=== PATIENT | female | born 1995 | race African-American/Black ===

== ENCOUNTER 2023-11-20 00:39 | Emergency (ER) | payer OTHER ==
[2023-11-20 00:49] VITALS: BP 154/96; PULSE 80; RESP 16; TEMP 97.9; BMI 35.4
[2023-11-20 02:22] LABS: EPI CELLS >36 /uL (0-25.1); HYALINE CASTS 1 /uL (0-3.1); PH,URINE 5.5 (5.0-8.0); URINE APPEARANCE CLEAR; URINE BACTERIA 530 /uL (0-1359); URINE BILIRUBIN NEGATIVE (NEGATIVE); URINE COLOR YELLOW; URINE GLUCOSE (UA) NEGATIVE (NEGATIVE); URINE KETONE NEGATIVE (NEGATIVE); URINE LEUK ESTERASE NEGATIVE (NEGATIVE); URINE NITRITE NEGATIVE (NEGATIVE); URINE PROTEIN 2+ (NEGATIVE); URINE RBC 6 /uL (0-23.9); URINE WBC 12 /uL (0-25.8)
[2023-11-20] MEDS ORDERED: ACETAMINOPHEN 325 MG TABLET (FP) ONE (03:58)
== END 2023-11-20 04:05 | disposition home or self-care (01) ==
LOC: FER 00:39
DX: O26.891 Other specified pregnancy related conditions, first trimester (principal); R10.30 Lower abdominal pain, unspecified; Z3A.01 Less than 8 weeks gestation of pregnancy
CPT/HCPCS: 76801-TC; 81003; 81025; 87086; 99284-25

== ENCOUNTER 2023-12-05 20:51 | Emergency (ER) | payer OTHER ==
[2023-12-05 20:55] VITALS: BP 109/69; RESP 18; BMI 35.4
[2023-12-05] MEDS ORDERED: ACETAMINOPHEN 325 MG TABLET (FP) PO ONE (21:58)
[2023-12-05] MEDS ORDERED: ACETAMINOPHEN 325 MG TABLET (FP) ONE (22:01)
[2023-12-05 23:01] VITALS: PULSE 89; TEMP 99.9
== END 2023-12-05 23:36 | disposition home or self-care (01) ==
LOC: JERFT 20:51 → JER 20:51
DX: R05.1 Acute cough (principal); R50.81 Fever presenting with conditions classified elsewhere; R63.0 Anorexia; Z20.822 Contact with and (suspected) exposure to COVID-19
CPT/HCPCS: 0241U-QW; 99283-25

== ENCOUNTER 2024-05-20 13:27 | Emergency (ER) | payer OTHER ==
[2024-05-20 13:47] VITALS: TEMP 97.6; BMI 36.3
[2024-05-20 14:27] LABS: BASO % 1.2 % (0-2.0); EOS % 2.6 % (0-4.5); HEMATOCRIT 34.5 % (32.4-45.2); HEMOGLOBIN 11.5 GM/dL (10.7-15.3); LYMPH % 32.4 % (8-40); MCH 21.7 pg (25.7-33.7); MCHC 33.2 g/dl (32.0-36.0); MEAN CELL VOLUME 65.3 fl (80-96); MEAN PLT VOLUME 8.8 fl (7.5-11.1); MONO % 6.4 % (3.8-10.2); NEUT % 57.4 % (42.8-82.8); PLATELET COUNT 393 10^3/uL (134-434); RBC 5.29 M/mm3 (3.60-5.2); RDW 20.8 % (11.6-15.6); WHITE BLOOD COUNT 8.2 K/mm3 (4.0-10.0)
[2024-05-20 14:36] LABS: INR 1.04 (0.83-1.09)
[2024-05-20 14:39] LABS: ACTIVATED PTT 28.2 SECONDS (25.2-36.5)
[2024-05-20] MEDS: SODIUM CHLORIDE 0.9% 500 ML INFUS.BAG IV ONE (14:42)
[2024-05-20] MEDS: LORazepam 2 MG/ML SDV VIAL IVPUSH ONE (14:42)
[2024-05-20 14:49] LABS: POTASSIUM 3.4 mmol/L (3.5-5.1)
[2024-05-20 14:51] LABS: CALCIUM 9.3 mg/dL (8.5-10.1)
[2024-05-20 14:52] LABS: ALBUMIN 3.7 g/dl (3.4-5.0); BLOOD UREA NITROGEN 13.3 mg/dL (7-18); MAGNESIUM 1.8 mg/dL (1.8-2.4)
[2024-05-20 14:55] LABS: CREATININE 1.2 mg/dL (0.55-1.3)
[2024-05-20 14:56] LABS: BILIRUBIN,TOTAL 0.6 mg/dL (0.2-1)
[2024-05-20 15:13] LABS: ANISOCYTOSIS 1+; MACROCYTOSIS 0
[2024-05-20 16:44] LABS: COCAINE, UR NEGATIVE (NEGATIVE); METHADONE, UR NEGATIVE (NEGATIVE); OPIATES, URI NEGATIVE (NEGATIVE); URINE AMPHETAMINES NEGATIVE (NEGATIVE)
[2024-05-20 16:45] LABS: PHENCYCLIDINE,URINE NEGATIVE (NEGATIVE); URINE BARBITURATES NEGATIVE (NEGATIVE); URINE BENZODIAZEPINES NEGATIVE (NEGATIVE)
[2024-05-20 17:06] VITALS: BP 125/79; PULSE 74; RESP 20
== END 2024-05-20 17:06 | disposition home or self-care (01) ==
LOC: JER 13:27
DX: R00.2 Palpitations (principal); R42 Dizziness and giddiness; R00.0 Tachycardia, unspecified; Z20.822 Contact with and (suspected) exposure to COVID-19
CPT/HCPCS: 0241U-QW; 36415; 71046-TC-FY; 80053; 80307; 83735; 84443; 84484; 84703; 85025; 85610; 85730; 93005; 93010; 99285-25

== ENCOUNTER 2024-08-16 18:28 | Emergency (ER) | payer OTHER ==
[2024-08-16 18:45] VITALS: BP 134/84; PULSE 106; RESP 18; TEMP 98; BMI 33.1
== END 2024-08-16 20:46 | disposition home or self-care (01) ==
LOC: JER 18:28
DX: F41.9 Anxiety disorder, unspecified (principal); R23.2 Flushing
CPT/HCPCS: 99283-25